=== PATIENT | male | born 1985 | race Caucasian/White ===

== ENCOUNTER → 2023-03-20 | Outpatient (REF) | LOC: M PLAIMG 14:22 | PROVIDERS: ATTEND Internal Medicine | DX: M54.50 Low back pain, unspecified (principal); M25.562 Pain in left knee ==

== ENCOUNTER → 2023-09-17 | Outpatient (REF) | LOC: M PLAIMG 13:50 | PROVIDERS: ATTEND Internal Medicine | DX: M25.562 Pain in left knee (principal); M54.89 Other dorsalgia ==